=== PATIENT | male | born 1945 | race Caucasian/White ===

== ENCOUNTER → 2018-09-07 | Day surgery (SDC) | payer MEDICARE, BC ==
--- NOTE | 2018-09-06 15:34 | Diagnostic Imaging Report ---
EXAM: CHEST 2 VIEWS DATE: 09/06/2018 2:55 PM INDICATION: Preop lithotripsy COMPARISON: None FINDINGS: Lines and tubes: None Heart size normal. No focal pulmonary opacity, pleural effusion or pneumothorax. Upper abdomen unremarkable. No acute bony abnormality. Cervical fusion hardware is noted. IMPRESSION: No evidence for acute disease. Signed by: Dr. Jacques Baldwin M.D. on 09/06/2018 3:30 PM
[~2018-09-07] MED LIST: ACETAMINOPHEN 1000 MG/100 ML IV ONE; ALLOPURINOL300 MG PO; AREDS 2; ASPIRIN81 MG; ATORVASTATIN CA20 MG PO; CARBAMAZEPINE200 MG PO; DESFLURANE 240 ML BTL INH ONE; DEXAMETHASONE SOD PHOS INJ 4 MG/ML VIAL ONE; FENTANYL CITRATE/PF 100MCG/2 ML INJ ONE; HYDROCHLOROTHIA25 MG; LEVOFLOXACIN 500MG/D5W 100ML 100 ML IV ONE; LOSARTAN-HCTZ1 EACH; METOPROLOL TAR100 MG PO; METOPROLOL TART50 MG PO; ONDANSETRON HCL INJ 2MG/ML 2ML 2 MG/ML VIAL ONE; PROPOFOL IV EMULSION 10 MG/ML 20 ML VIAL ONE
--- OUTSIDE RECORDS SUMMARY | 2018-09-07 07:02 | XMS REPORT ---
Author Author [facility] Address Unknown Phone Unavailable Care Team Providers Care Labor Relations Consultant Name Role Phone Sanjeev ORONA Unavailable Unavailable Danelle Mantilla Unavailable Unavailable Problems This patient has no known problems. Allergies, Adverse Reactions, Alerts This patient has no known allergies or adverse reactions. Medications This patient has no known medications. Encounters Start Date/Time End Date/Time Encounter Type Admission Type Attending Clinicians Care Facility Care Department Encounter ID 2016-12-31 10:25:00 2016-12-31 10:25:00 Outpatient Gagan Mantilla [facility] [id number] Results Test Description Test Time Test Comments Text Results Atomic Results Result Comments CHEST 2 VIEWS 2018-09-06 15:29:00 [place] [address] Patient Name: JUAN MANUEL JUAREZ MR #: [id number] : 1945 Age/Sex: 72/M Req #: [id number] [facility] Physician: Ordered by: VINH ORONA MD Report #: [id number] Location: OR Room/Bed: Procedure: [id number] DX/CHEST 2 VIEWS Exam Date: Exam Time: REPORT STATUS: Signed EXAM: CHEST 2 VIEWS DATE: 09/06/2018 2:55 PM INDICATION: Preop lithotripsy COMPARISON: None FINDINGS: Lines and tubes: None Heart size normal. No focal pulmonary opacity, pleural effusion or pneumothorax. Upper abdomen unremarkable. No acute bony abnormality. Cervical fusion hardware is noted. IMPRESSION: No evidence for acute disease. Signed by: Dr. Gurinder Barnard M.D. on 09/06/2018 3:30 PM Dictated By: GURINDER BARNARD MD 153 Transcribed By: LILIAN on 09/06/18 153 COPY TO: VINH ORONA MD
--- OUTSIDE RECORDS SUMMARY | 2018-09-07 07:02 | XMS REPORT | Clinical Summary ---
Author Author [facility] Address Unknown Phone Unavailable Care Team Providers Care Roller Coaster Designer Name Role Phone Ignacio Ross MD PCP Allergies No Known Allergies Medications End Date Status Medication Sig Dispensed Refills Start Date Active allopurinol (ZYLOPRIM) Take 300 mg 0 300 MG tablet by mouth daily. Active aspirin (ECOTRIN) 81 MG Take 81 mg by 0 enteric coated tablet mouth daily. Active atorvastatin (LIPITOR) 80 Take 80 mg by 0 MG tablet mouth nightly. Active losartan-hydrochlorothiaz Take 1 tablet 0 jc (HYZAAR) 50-12.5 mg by mouth per tablet daily. Active metoprolol succinate XL Take 100 mg 0 (TOPROL-XL) 100 mg 24 hr by mouth tablet nightly. Active carBAMazepine (TEGretol) Take 200 mg 0 200 mg tablet by mouth 3 (three) times a day. Active vit A/vit C/vit Take by 0 E/zinc/copper (ICAPS mouth. AREDS ORAL) 06/30/2018 Discontinued ticagrelor (BRILINTA) 90 Take 90 mg by 0 mg tablet mouth 2 (two) times a day. Active Problems Problem Noted Date Chronic pain of right knee 06/30/2018 Chronic pain of right ankle 06/30/2018 Primary osteoarthritis of right knee 06/30/2018 Obesity (BMI 38.73) 06/30/2018 Coronary artery disease involving [place] heart without angina pectoris 05/27/2016 Encounters Care Team Description Date Type Specialty Braxton Knox MD Calculus of ureter (Primary Dx); Uric acid nephrolithiasis 08/15/2018 Transcribe Access Orders Braxton Knox MD Calculus of ureter (Primary Dx) 08/15/2018 Transcribe Access Orders Vijay Venegas MD Chronic pain of right knee (Primary Dx); Chronic pain of right ankle; Primary osteoarthritis of right knee; Obesity (BMI 38.73) 06/30/2018 Office Visit Orthopedic Surgery Braxton Knox MD Calculus of ureter; Calculus of kidney 05/26/2018 Hospital Radiology Encounter Braxton Knox MD Calculus of kidney; Calculus of ureter 02/24/2018 Hospital Radiology Encounter Braxton Knox MD Calculus of ureter; Uric acid nephrolithiasis 11/24/2017 Hospital Radiology Encounter after 09/06/2017 Family History Medical History Relation Name Comments Heart disease Father Heart murmur Mother Heart disease Paternal Uncle Relation Name Status Comments Father Mother Paternal Uncle Social History Date Tobacco Use Types Packs/Day Years Used Former Smoker Smokeless Tobacco: Never Used Alcohol Use Drinks/Week oz/Week Comments No Sex Assigned at Date Recorded Not on file Industry Job Start Date Occupation Not on file Not on file Not on file Travel End Travel History Travel Start No recent travel history available. Last Filed Vital Signs Time Taken Vital Sign Reading - Blood Pressure - - Pulse - - Temperature - - Respiratory Rate - - Oxygen Saturation - - Inhaled Oxygen - Concentration 06/30/2018 8:30 AM [facility] Weight 114 kg (251 lb) 06/30/2018 8:30 AM [facility] Height 171.5 cm (5' 7.5") 06/30/2018 8:30 AM [facility] Body Mass Index 38.73 Plan of Treatment Health Maintenance Due Date Last Done Comments COLON CANCER SCREENING 11/11/1997 SHINGLES VACCINES (#1) 11/11/1997 65+ PNEUMOCOCCAL VACCINE 11/11/2012 (1 of 2 - PCV13) PNEUMOCOCCAL 11/11/2012 POLYSACCHARIDE VACCINE AGE 65 AND OVER INFLUENZA VACCINE 01/19/2018 Implants Device Identifier Shelf Expiration Date Model / Serial / Lot Implanted Type Area Manufactur er 12/13/2017 [id number] / / [id number] Stent Cor Resolute Integrity Coronary N/A: N/A [employer] Ztrlims-Eltng Otw 2.5x14mm - Stents [facility] - [id number] VASCULAR Implanted: 05/27/2016 (Quantity not on file) Procedures Comments Procedure Name Priority Date/Time Associated Diagnosis XR KUB KIDNEY URETER Routine 08/15/2018 Calculus of ureter BLADDER 12:56 PM [facility] XR KNEE 4+ VW RIGHT Routine 06/30/2018 Chronic pain of right 8:46 AM [employer] knee XR ANKLE 3+ VW RIGHT Routine 06/30/2018 Chronic pain of right 8:45 AM [employer] ankle XR ABDOMEN 1 VW Routine 05/26/2018 Calculus of ureter 11:23 AM [facility] [facility] Calculus of kidney XR ABDOMEN 1 VW Routine 02/24/2018 Calculus of kidney 11:14 AM CDT Calculus of ureter XR ABDOMEN 1 VW Routine 11/24/2017 Calculus of ureter 12:53 PM CDT Uric acid nephrolithiasis after 09/06/2017 Results * XR Kub Kidney Ureter Bladder (08/15/2018 12:56 PM [facility]) Narrative Performed At EXAMINATION:XR KUB KIDNEY URETER BLADDER [facility] INDICATION:N20.1 Calculus of ureter, n20.1 COMPARISON: May 26, 2018 IMPRESSION: 1.Numerous, punctate calcifications measuring 3-4 mm are seen throughout the left kidney as well as a questionable calcification over the interpolar region of the right kidney. 2.Punctate (1 mm) calcification projecting adjacent to the right L3 transverse process could be along the course of the right ureter. 3.Calcifications projecting over the pelvis, likely phleboliths. 4.Bowel gas pattern is nonobstructive. Lung bases are clear. No significant osseous abnormality. [id number] Procedure Note Hm Interface, Radiology Results Incoming - 08/15/2018 2:54 PM [facility] EXAMINATION: XR KUB KIDNEY URETER BLADDER INDICATION: N20.1 Calculus of ureter, n20.1 COMPARISON: May 26, 2018 IMPRESSION: 1. Numerous, punctate calcifications measuring 3-4 mm are seen throughout the left kidney as well as a questionable calcification over the interpolar region of the right kidney. 2. Punctate (1 mm) calcification projecting adjacent to the right L3 transverse process could be along the course of the right ureter. 3. Calcifications projecting over the pelvis, likely phleboliths. 4. Bowel gas pattern is nonobstructive. Lung bases are clear. No significant osseous abnormality. [id number] Performing Organization Address City/State/Zipcode Phone Number [facility] [address] [place] [address] * XR Knee 4+ Vw Right (06/30/2018 8:46 AM [facility]) [facility]arrative [facility] At [facility] Weightbearing AP and PA x-rays on both knees with a lateral x-ray of the right knee: Normal study aside from some modest medial compartment narrowing on the right knee Performing Organization Address City/[facility]/Zipcode Phone Number [facility] [address] [place] [address] * XR Ankle 3+ Vw Right (06/30/2018 8:45 AM [facility]) Narrative [facility]formed At [facility] Three-view x-ray of the right ankle: Ankle mortise appears to be reasonably well base is normal.There is a small dorsal prominence over the talar neck area looks like it could potentially impinge with dorsiflexion of the foot.No other abnormality Performing Organization Address [facility] Phone Number [facility] [address] [place] [address] * XR Abdomen 1 Vw (05/26/2018 11:23 AM [facility]) Only the most recent of 3 results within the time period is included. Narrative Performed At EXAMINATION:XR ABDOMEN 1 VW [facility] CLINICAL HISTORY:N20.1 Calculus of ureter, N20.0 Calculus of kidney COMPARISON:None. IMPRESSION: There is a nonspecific bowel gas pattern. No free air is identified. Phleboliths are present in the pelvis. Age related changes are present throughout the bony structures without evidence of a suspicious focal lesion. [id number] Procedure Note Interface, Radiology Results Incoming - 05/26/2018 2:06 PM [facility] EXAMINATION: XR ABDOMEN 1 VW CLINICAL HISTORY: N20.1 Calculus of ureter, N20.0 Calculus of kidney COMPARISON: None. IMPRESSION: There is a nonspecific bowel gas pattern. No free air is identified. Phleboliths are present in the pelvis. Age related changes are present throughout the bony structures without evidence of a suspicious focal lesion. [facility]-[id number] Performing Organization Address City/[facility]/Zipcode Phone Number [employer] [address] [place] [address] after 09/06/2017 Insurance Payer Benefit Subscriber ID Type Phone Address Plan / Group MEDICARE MEDICARE xxxxxxxxxxx Medicare [place], [place] PART A AND B BCBS BCBS xxxxxxxxxxxx Indemnity PAR/TRAD PLAN (Paulina) [place] [address] Advance Directives Patient has advance care planning documents on file. For more information, nikia lindsay contact: Tai Wong [address] [place] [phone]
--- NOTE | 2018-09-07 08:45 | Diagnostic Imaging Report ---
Exam: KUB-3 views Clinical History: Pre-op. Comparison: None. Findings: Nonobstructive bowel gas pattern. No evidence of free intraperitoneal air. Bowel gas partially obscures visualization of the kidneys. There are multiple left-sided renal calcifications measuring up to 5 mm. There is a 3 mm calcification overlying the right lower kidney. Impression: Bilateral renal stones measuring up to 5 mm on the left and 3 mm on the right. Signed by: Dr. Quyen Perez MD on 09/07/2018 8:42 AM
[2018-09-07 11:40] VITALS: BP 148/88
--- NOTE | 2018-09-07 11:57 | Operative Report ---
DATE OF PROCEDURE: 09/07/2018 SURGEON: Braxton Knox MD PREOPERATIVE DIAGNOSES: 1. Left mid pole caliceal calculi, 6 x 6. 2. Left lower pole caliceal calculi, 5 x 5. POSTOPERATIVE DIAGNOSES: 1. Left mid pole caliceal calculi, 6 x 6. 2. Left lower pole caliceal calculi, 5 x 5. OPERATION: 1. Left mid pole caliceal ESWL, 2000 shocks delivered. 2. Left lower pole caliceal calculi ESWL, 2000 shocks delivered. ANESTHESIA: General. INDICATION: Mr. Pina is a 72-year-old male, who is very well known to me by having a history of recurrent kidney stones. He presented at this time with back pain and a CT scan showed a cluster calculi of about 3 to 4 totalling 6 to 7 x 7 mm calculi in the mid pole. There were other calculi in the lower pole, again cluster about 5 to 6 mm. PROCEDURE IN DETAIL: This patient was placed on the table in the supine position and the mid pole caliceal calculi were brought into position. The lithotripsy was then started starting at 2 kilovolts and slowly and gradually increased to 7 kilovolts. Observation of the stone pulverization was done at 250 shocks. At 2000 shocks, it was felt that the stones have completely pulverized in the left mid pole calyx. Attention was then directed to the lower pole caliceal cluster calculi and again the lithotripsy was started starting at 2 kilovolts. The lithotripsy was then increased to 7 kilovolts. Observation of the stone pulverization was done at 250 shocks. At 4000 shocks, it was felt that the stone has completely pulverized. The patient tolerated the procedure well and was taken to the recovery room in satisfactory condition. Plan for this patient is to be started on Cipro 250 mg one twice a day for seven days. Ultracet tablet one every 6 hours p.r.n. and was given #20. He is to return to the office in two weeks. Braxton Knox MD MA/BLAISEL /[id number]
== END | disposition home or self-care (01) ==
LOC: OR 07:00
PROVIDERS: ATTEND Specialist
DX: K20.0 Eosinophilic esophagitis (principal); I25.10 Atherosclerotic heart disease of native coronary artery without angina pectoris; I10 Essential (primary) hypertension; Z98.61 Coronary angioplasty status; Z01.810 Encounter for preprocedural cardiovascular examination; Z01.818 Encounter for other preprocedural examination; Z79.82 Long term (current) use of aspirin; Z86.73 Personal history of transient ischemic attack (TIA), and cerebral infarction without residual deficits
CPT/HCPCS: 50590; 71046; 74018; 93005; J0131; J1100; J1956; J2405; J2704